=== PATIENT | female | born 1970 | race American Indian/Alaskan Native ===

== ENCOUNTER 2020-05-26 20:15 | Emergency (ER) | payer MEDICAID ==
[2020-05-26 20:36] VITALS: BP 126/79
--- NOTE | 2020-05-26 21:09 | XRay Report ---
LEFT ANKLE 3 VIEWS INDICATION / CLINICAL INFORMATION: Left ankle pain and swelling. No known injury. COMPARISON: None available. FINDINGS: BONES and JOINT(S): No acute fracture or subluxation. No significant arthritis. SOFT TISSUES: There is mild anterior/lateral edema. No other significant abnormality. ADDITIONAL FINDINGS: None. IMPRESSION: Mild left ankle edema. Signer Name: Vitaly Kolb MD Signed: 05/26/2020 9:04 PM Workstation Name: [id number]
[2020-05-27] MEDS ORDERED: KETOROLAC 30 MG/1 ML INJ IM ONE (00:29)
[2020-05-27] MEDS ORDERED: dexAMETHasone 20 MG/5 ML VIAL IM ONE (00:29)
[2020-05-27] MEDS ORDERED: COLCHICINE 0.6 MG CAP PO ONE (00:30)
[2020-05-27] MEDS ORDERED: ONDANSETRON 4 MG ODT TAB PO ONE (00:30)
[2020-05-27] MEDS ORDERED: oxyCODONE /ACETAMINOPHEN 5-325MG TAB PO ONE (00:30)
--- NOTE | 2020-05-27 01:45 | Emergency Department Report ---
ED Extremity Problem HPI - General Chief complaint: Extremity Injury, Lower Stated complaint: LT ANKLE INJURY Source: patient Mode of arrival: Ambulatory Limitations: No Limitations - History of Present Illness Initial comments: Patient is a 49-year-old -[place]oc[place] female with a history of osteoarthritis who presents to the ED with complaint of acute onset persistent nontraumatic left ankle pain and swelling for the last 12 hours. Patient states that she is unable to bear weight on the left ankle because of worsening pain. Patient denies traumatic injury, fall, heavy lifting, dizziness, fever, chills, low back pain, numbness and tingling or weakness of left leg or left ankle, cough or chest pain or shortness of breath. MD Complaint: extremity pain (left ankle pain), extremity swelling (left ankle swelling), joint swelling (left ankle), joint paint (left ankle) -: Sudden, hour(s) (12) Location: left, lower extremity (Ankle) History of Same: No -: Yes arthralgia, No fever, No associated dyspnea, No associated chest pain Radiation: none Severity scale (0 -10): 8 Quality: aching, sharp Consistency: constant Improves with: nothing Worsens with: weight bearing, walking, palpation Associated Symptoms: denies other symptoms, arthralgias. denies: chest pain, sh ortness of breath, fever, myalgias, rash, other - Related Data Previous Rx's Medication Instructions Recorded Last Taken Type Colchicine 0.6 mg PO Q8H #30 capsule 05/27/20 Unknown Rx Naproxen 500 mg PO Q12H PRN #30 tablet 05/27/20 Unknown Rx predniSONE [Deltasone] 40 mg PO QDAY #10 tab 05/27/20 Unknown Rx traMADoL [Ultram] 50 mg PO Q6HR PRN #12 tablet 05/27/20 Unknown Rx Allergies Allergy/AdvReac Type Severity Reaction Status Date / Time No Known Allergies Allergy Unverified 05/26/20 20:36 ED Review of Systems ROS: Stated complaint: LT ANKLE INJURY Other details as noted in HPI Constitutional: denies: chills, fever Eyes: denies: eye pain, eye discharge, vision change ENT: denies: ear pain, throat pain Respiratory: denies: cough, shortness of breath, wheezing Cardiovascular: denies: chest pain, palpitations Endocrine: no symptoms reported Gastrointestinal: denies: abdominal pain, nausea, diarrhea Genitourinary: denies: urgency, dysuria, discharge Musculoskeletal: joint swelling (Left ankle pain and swelling), arthralgia (Left ankle pain). denies: back pain Skin: denies: rash, lesions Neurological: denies: headache, weakness, paresthesias Psychiatric: denies: anxiety, depression Hematological/Lymphatic: denies: easy bleeding, easy bruising ED Past Medical Hx - Past Medical History Previous Medical History?: No Hx Arthritis: Yes - Surgical History Past Surgical History?: No - Social History Smoking Status: Current Every Day Smoker Substance Use Type: Alcohol, Marijuana - Medications Home Medications: Home Medications Medication Instructions Recorded Confirmed Last Taken Type Colchicine 0.6 mg PO Q8H #30 capsule 05/27/20 Unknown Rx Naproxen 500 mg PO Q12H PRN #30 tablet 05/27/20 Unknown Rx predniSONE [Deltasone] 40 mg PO QDAY #10 tab 05/27/20 Unknown Rx traMADoL [Ultram] 50 mg PO Q6HR PRN #12 tablet 05/27/20 Unknown Rx ED Physical Exam - General Limitations: No Limitations General appearance: alert, in no apparent distress - Head Head exam: Present: atraumatic, normocephalic, normal inspection - Eye Eye exam: Present: normal appearance, PERRL, EOMI Pupils: Present: normal accommodation - ENT ENT exam: Present: normal exam, normal orophraynx, mucous membranes moist, TM's normal bilaterally, normal external ear exam - Neck Neck exam: Present: normal inspection, full ROM - Respiratory Respiratory exam: Present: normal lung sounds bilaterally. Absent: respiratory distress, wheezes, rales, rhonchi, chest wall tenderness, accessory muscle use, decreased breath sounds - Cardiovascular Cardiovascular Exam: Present: regular rate, normal rhythm, normal heart sounds. Absent: systolic murmur, diastolic murmur, rubs, gallop - GI/Abdominal GI/Abdominal exam: Present: soft, normal bowel sounds. Absent: tenderness, guarding, rebound, hyperactive bowel sounds, hypoactive bowel sounds - Extremities Exam Extremities exam: Present: normal inspection, full ROM, tenderness (Palpable left ankle tenderness with mild swelling and limited range of motion due to pain), normal capillary refill, joint swelling (Mild left ankle swelling) - Back Exam Back exam: Present: normal inspection, full ROM. Absent: tenderness, CVA tenderness (R), CVA tenderness (L), muscle spasm, paraspinal tenderness, vertebral tenderness - Neurological Exam Neurological exam: Present: alert, oriented X3, CN II-XII intact, normal gait, reflexes normal - Psychiatric Psychiatric exam: Present: normal affect, normal mood - Skin Skin exam: Present: warm, dry, intact, normal color. Absent: rash ED Course Vital Signs 05/26/20 20:32 Temperature 98.8 F Pulse Rate 92 H Respiratory 16 Rate Blood Pressure 126/79 O2 Sat by Pulse 95 Oximetry ED Medical Decision Making - Radiology Data Radiology results: report reviewed, image reviewed Findings [facility] [address] [place] [address] XRay Report Signed Patient: PIETRO JUAREZ MR#: [id number] : 1970 Acct:[id number] Age/Sex: 49 / F ADM Date: 05/26/20 Loc: ED Attending Dr: Ordering Physician: ED MD DARIO Date of Service: 05/26/20 Procedure(s): XR ankle 3+V LT Accession Number(s): [id number] cc: ED MD DARIO Fluoro Time In Minutes: LEFT ANKLE 3 VIEWS INDICATION / CLINICAL INFORMATION: Left ankle pain and swelling. No known injury. COMPARISON: None available. FINDINGS: BONES and JOINT(S): No acute fracture or subluxation. No significant arthritis. SOFT TISSUES: There is mild anterior/lateral edema. No other significant abnormality. ADDITIONAL FINDINGS: None. IMPRESSION: Mild left ankle edema. Signer Name: Vitaly Kolb MD Signed: 05/26/2020 9:04 PM Workstation Name: [id number] Transcribed By: MN Dictated By: Vitaly Kolb MD Electronically Authenticated By: Vitaly Kolb MD Signed Date/Time: 05/26/202103 DD/ 02 TD/TT: - Medical Decision Making This is a 49-year-old -[place]oc[place] female with a history of osteoarthritis who presents to the ED with complaint of acute onset persistent nontraumatic left ankle pain and swelling for the last 12 hours. Patient states that she is unable to bear weight on the left ankle because of worsening pain. In the ED, patient is alert and oriented x3 and is not in distress but appears to be in significant pain. Patient was treated for pain in the ED and left ankle x-ray shows no acute fractures or subluxations but mild left ankle swelling. Patient symptoms are likely due to osteoarthritis or gouty arthropathy versus tendinitis. Patient's left ankle was splinted with Jarrod wrap. On reevaluation, patient's pain is well controlled medications. Patient was discharged home on pain medications and advised to follow-up with her primary care physician in 3 to 5 days for reevaluation or return to the ED immediately if symptoms get worse. - Differential Diagnosis Gouty arthropathy; Osteoarthritis; Tendinitis; Muscle strain Critical care attestation.: If time is entered above; I have spent that time in minutes in the direct care of this critically ill patient, excluding procedure time. ED Disposition Clinical Impression: Acute gouty arthropathy, Left ankle tendinitis Osteoarthritis of left ankle Qualifiers: Osteoarthritis type: primary Qualified Code(s): M19.072 - Primary osteoarthritis, left ankle and foot Disposition: TO HOME OR SELFCARE Is pt being admited?: No Does the pt Need Aspirin: No Condition: Stable Instructions: Tendinitis (ED), Acute Gouty Arthritis (ED), Osteoarthritis (ED) Additional Instructions: Take medication with food, drink plenty of fluids and follow-up with your primary care physician in 5 to 7 days for reevaluation. Return to the ED immediately if symptoms get worse. Prescriptions: Colchicine 0.6 mg PO Q8H #30 capsule predniSONE [Deltasone] 40 mg PO QDAY #10 tab Naproxen 500 mg PO Q12H PRN #30 tablet PRN Reason: Pain , Severe (7-10) traMADoL [Ultram] 50 mg PO Q6HR PRN #12 tablet PRN Reason: Pain Referrals: [facility] [Provider Group] - 3-5 Days Time of Disposition: 01:46 Print Language: BENGALI
== END 2020-05-27 02:20 | disposition home or self-care (01) ==
LOC: ED 20:15
DX: M19.072 Primary osteoarthritis, left ankle and foot (principal); M77.52 Other enthesopathy of left foot and ankle; M10.9 Gout, unspecified; F17.200 Nicotine dependence, unspecified, uncomplicated; F12.10 Cannabis abuse, uncomplicated; Z79.899 Other long term (current) drug therapy
CPT/HCPCS: 73610; 96372; 99283; J1100; J1885; Q0162

== ENCOUNTER 2020-07-30 09:09 | Emergency (ER) | payer MEDICAID ==
[2020-07-30 09:18] VITALS: BP 131/64
--- NOTE | 2020-07-30 12:06 | Emergency Department Report ---
ED Abdominal Pain HPI - General Chief Complaint: Urogenital-Female Stated Complaint: KIDNEY INFECTION Source: patient Mode of arrival: Ambulatory Limitations: No Limitations - History of Present Illness Initial Comments: The patient was evaluated in the emergency department for symptoms described in the history of present illness. He/she was evaluated in the context of the [facility] COVID-19 pandemic, which necessitated consideration that the patient might be at risk for infection with the virus that causes COVID-19. Institutional protocols and algorithms that pertain to the evaluation of patients at risk for COVID-19 are in a state of rapid change based on information released by regulatory bodies including the CDC and federal and state organizations. These policies and algorithms were followed during the patient's care in the emergency department. Please note that these policies, procedures and recommendations changed on a rapid basis. 50-year-old -Iranian female presents to the emergency room for right lower quadrant intermittent abdominal pain for 3 weeks. Patient denies any fever chills no nausea no vomiting no dysuria no diarrhea no constipation no unusual vaginal discharge. Last sexual activity without protection was 1 week ago. She reports her pains a 7 out of 10. Nothing makes it worse nothing makes it better. Past medical history of arthritis. MD Complaint: abdominal pain Onset/Timin -: week(s) Location: RLQ Radiation: none Severity scale (0 -10): 7 Quality: aching Improves With: nothing Worsens With: nothing Associated Symptoms: denies other symptoms. denies: nausea, vomiting, diarrhea, constipation - Related Data LMP (females 10-50): unknown Previous Rx's Medication Instructions Recorded Last Taken Type Colchicine 0.6 mg PO Q8H #30 capsule 05/27/20 Unknown Rx Naproxen 500 mg PO Q12H PRN #30 tablet 05/27/20 Unknown Rx predniSONE [Deltasone] 40 mg PO QDAY #10 tab 05/27/20 Unknown Rx traMADoL [Ultram] 50 mg PO Q6HR PRN #12 tablet 05/27/20 Unknown Rx Omeprazole 40 mg PO QDAY #30 capsule. 07/30/20 Unknown Rx Allergies Allergy/AdvReac Type Severity Reaction Status Date / Time No Known Allergies Allergy Unverified 05/26/20 20:36 ED Review of Systems ROS: Stated complaint: KIDNEY INFECTION Other details as noted in HPI Comment: All other systems reviewed and negative ED Past Medical Hx - Past Medical History Hx Arthritis: Yes - Social History Smoking Status: Current Every Day Smoker Substance Use Type: Alcohol, Marijuana - Medications Home Medications: Home Medications Medication Instructions Recorded Confirmed Last Taken Type Colchicine 0.6 mg PO Q8H #30 capsule 05/27/20 Unknown Rx Naproxen 500 mg PO Q12H PRN #30 tablet 05/27/20 Unknown Rx predniSONE [Deltasone] 40 mg PO QDAY #10 tab 05/27/20 Unknown Rx traMADoL [Ultram] 50 mg PO Q6HR PRN #12 tablet 05/27/20 Unknown Rx Omeprazole 40 mg PO QDAY #30 capsule. 07/30/20 Unknown Rx ED Physical Exam - General Limitations: No Limitations General appearance: alert, in no apparent distress - Head Head exam: Present: atraumatic, normocephalic - Eye Eye exam: Present: normal appearance - ENT ENT exam: Present: mucous membranes moist - Neck Neck exam: Present: normal inspection - Respiratory Respiratory exam: Present: normal lung sounds bilaterally. Absent: respiratory distress, chest wall tenderness - Cardiovascular Cardiovascular Exam: Present: regular rate, normal rhythm. Absent: systolic murmur, diastolic murmur, rubs, gallop - GI/Abdominal GI/Abdominal exam: Present: soft, tenderness (Right lower quadrant). Absent: distended - Back Exam Back exam: Present: normal inspection - Neurological Exam Neurological exam: Present: alert, oriented X3, normal gait - Psychiatric Psychiatric exam: Present: normal affect, normal mood - Skin Skin exam: Present: warm, dry, intact, normal color. Absent: rash ED Course Vital Signs 07/30/20 09:17 Temperature 97.7 F Pulse Rate 87 Respiratory 16 Rate Blood Pressure 131/64 O2 Sat by Pulse 98 Oximetry ED Medical Decision Making - Lab Data Result diagrams: 07/30/20 12:06 07/30/20 12:06 Lab Results 07/30/20 07/30/20 07/30/20 Range/Units 11:23 12:06 12:06 WBC 10.6 (4.5-11.0) K/mm3 RBC 4.59 (3.65-5.03) M/mm3 Hgb 15.2 H (10.1-14.3) gm/dl Hct 45.4 H (30.3-42.9) % MCV 99 H (79-97) fl MCH 33 H (28-32) pg MCHC 34 (30-34) % RDW 13.7 (13.2-15.2) % Plt Count 219 (140-440) K/mm3 Lymph % (Auto) 30.7 (13.4-35.0) % [place] % (Auto) 7.5 H (0.0-7.3) % Eos % (Auto) 1.2 (0.0-4.3) % Baso % (Auto) 2.0 H (0.0-1.8) % Lymph # (Auto) 3.3 (1.2-5.4) K/mm3 [place] # (Auto) 0.8 (0.0-0.8) K/mm3 Eos # (Auto) 0.1 (0.0-0.4) K/mm3 Baso # (Auto) 0.2 H (0.0-0.1) K/mm3 Seg Neutrophils % 58.6 (40.0-70.0) % Seg Neutrophils # 6.2 (1.8-7.7) K/mm3 Sodium 140 (137-145) mmol/L Potassium 4.2 (3.6-5.0) mmol/L Chloride 105.0 (98-107) mmol/L Carbon Dioxide 25 (22-30) mmol/L Anion Gap 14 mmol/L BUN 11 (7-17) mg/dL Creatinine 0.7 (0.6-1.2) mg/dL Estimated GFR > 60 ml/min BUN/Creatinine Ratio 16 % Glucose 90 (65-100) mg/dL Calcium 8.9 (8.4-10.2) mg/dL Total Bilirubin 0.20 (0.1-1.2) mg/dL AST 15 (5-40) units/L ALT 10 (7-56) units/L Alkaline Phosphatase 85 (35-129) units/L Total Protein 7.0 (6.3-8.2) g/dL Albumin 4.2 (3.9-5) g/dL Albumin/Globulin Ratio 1.5 % Lipase 28 (13-60) units/L Urine Color Yellow (Yellow) Urine Turbidity Cloudy (Clear) Urine pH 5.0 (5.0-7.0) Ur Specific [place] 1.021 (1.003-1.030) Urine Protein <15 mg/dl (Negative) mg/dL Urine Glucose (UA) Neg (Negative) mg/dL Urine Ketones Neg (Negative) mg/dL Urine Blood Neg (Negative) Urine Nitrite Neg (Negative) Urine Bilirubin Neg (Negative) Urine Urobilinogen 2.0 (<2.0) mg/dL Ur Leukocyte Esterase Neg (Negative) Urine WBC (Auto) 4.0 (0.0-6.0) /HPF Urine RBC (Auto) 6.0 (0.0-6.0) /HPF U Epithel Cells (Auto) 33.0 H (0-13.0) /HPF Urine Bacteria (Auto) 1+ (Negative) /HPF Calcium Oxalate Crystal 2+ Urine Mucus 2+ /HPF - Radiology Data Radiology results: report reviewed Ordering Physician: JOSIE KOHLI Date of Service: 07/30/20 Procedure(s): CT abdomen pelvis w con Accession Number(s): [id number] cc: JOSIE KOHLI CT abdomen pelvis w con INDICATION: Right lower quadrant pain and tenderness. TECHNIQUE: All CT scans at this location are performed using the following dose modulation technique: Automated exposure control. Helical slices were obtained through the abdomen and pelvis. 100 cc of Omnipaque 300 is administered. COMPARISON: None available. FINDINGS: Abdomen: No acute abnormality seen in the lower chest. The liver, spleen, pancreas, adrenal glands, and kidneys show no acute abnormality. The aorta is normal in diameter. There is no obstruction, inflammation, or free air. There appears to be some wall thickening in the distal stomach or duodenal bulb possibly representing gastritis/duodenitis. Pelvis: The appendix is unremarkable. There is no obstruction, inflammation, or free air. There are no abnormal fluid collections. On review of bone windows, no acute osseous abnormalities are seen. IMPRESSION: 1. There is wall thickening noted in the distal stomach/duodenal bulb which could represent gastritis or duodenitis. The appendix is unremarkable. There is no obstruction or free air. Signer Name: Goldy Johnston MD Signed: 07/30/2020 1:38 PM Workstation Name: [id number] Transcribed By: SS Dictated By: Goldy Johnston MD Electronically Authenticated By: Goldy Johnston MD Signed Date/Time: 07/30/20 1330 DD/ 1334 TD/TT: - Medical Decision Making 50-year-old -Iranian female presents to the emergency room for right lower quadrant intermittent abdominal pain for 3 weeks. Patient denies any fever chills no nausea no vomiting no dysuria no diarrhea no constipation no unusual vaginal discharge. Last sexual activity without protection was 1 week ago. She reports her pains a 7 out of 10. Nothing makes it worse nothing makes it better. Past medical history of arthritis. CBC CMP lipase urinalysis CT with contrast. CT showed some duodenitis versus gastritis. Urinalysis is negative for any infection. There is no leukocytosis. Patient will be referred to gastroenterology. She can take Tylenol for pain management. Critical care attestation.: If time is entered above; I have spent that time in minutes in the direct care of this critically ill patient, excluding procedure time. ED Disposition Clinical Impression: Gastritis and duodenitis Disposition: DC-01 TO HOME OR SELFCARE Is pt being admited?: No Condition: Stable Instructions: Gastritis, Adult, [id number] Additional Instructions: CT scan shows that you have a gastritis versus duodenitis. I recommend taking the omeprazole and to follow-up with gastroenterology for more evaluation and testing. Prescriptions: Omeprazole 40 mg PO QDAY #30 capsule. Referrals: PRIMARY CARE, [Primary Care Provider] - 3-5 Days [facility] [Provider Group] - 3-5 Days Forms: Work/School Release Form(ED)
[2020-07-30 12:12] LABS: Bacteria,Urine 1+ /HPF (Negative); Bilirubin,Urine NEG (Negative); Blood,Urine NEG (Negative); Calcium Oxalate Crystals,Urine 2+; Color,Urine Yellow (Yellow); Mucus,Urine 2+ /HPF; Protein,Urine <15 mg/dL mg/dL (Negative)
[2020-07-30 12:46] LABS: Basophils # (Auto) 0.2 K/mm3 (0.0-0.1); Eosinophils # (Auto) 0.1 K/mm3 (0.0-0.4); Eosinophils % (Auto) 1.2 % (0.0-4.3); Hematocrit 45.4 % (30.3-42.9); Hemoglobin 15.2 gm/dl (10.1-14.3); Lymphocytes # (Auto) 3.3 K/mm3 (1.2-5.4); Lymphocytes % (Auto) 30.7 % (13.4-35.0); Mean Corpuscular HGB Conc 34 % (30-34); Mean Corpuscular Volume 99 fl (79-97); Monocytes # (Auto) 0.8 K/mm3 (0.0-0.8); Monocytes % (Auto) 7.5 % (0.0-7.3); Platelet Count 219 K/mm3 (140-440); Red Blood Count 4.59 M/mm3 (3.65-5.03); Red Cell Distribution Width 13.7 % (13.2-15.2)
[2020-07-30 12:50] LABS: Alanine Aminotransferase 10 units/L (7-56); Albumin 4.2 g/dL (3.9-5); Blood Urea Nitrogen 11 mg/dL (7-17); Calcium 8.9 mg/dL (8.4-10.2); Hemolysis Index 10
[2020-07-30 12:57] LABS: BUN/Creatinine Ratio 16
--- NOTE | 2020-07-30 13:43 | Cat Scan Report ---
CT abdomen pelvis w con INDICATION: Right lower quadrant pain and tenderness. TECHNIQUE: All CT scans at this location are performed using the following dose modulation technique: Automated exposure control. Helical slices were obtained through the abdomen and pelvis. 100 cc of Omnipaque 30 0 is administered. COMPARISON: None available. FINDINGS: Abdomen: No acute abnormality seen in the lower chest. The liver, spleen, pancreas, adrenal glands, a nd kidneys show no acute abnormality. The aorta is normal in diameter. There is no obstruction, infla mmation, or free air. There appears to be some wall thickening in the distal stomach or duodenal bulb possibly representing gastritis/duodenitis. Pelvis: The appendix is unremarkable. There is no obstruction, inflammation, or free air. There are n o abnormal fluid collections. On review of bone windows, no acute osseous abnormalities are seen. IMPRESSION: 1. There is wall thickening noted in the distal stomach/duodenal bulb which could represent gastritis or duodenitis. The appendix is unremarkable. There is no obstruction or free air. Signer Name: Goldy Johnston MD Signed: 07/30/2020 1:38 PM Workstation Name: [id number]
== END 2020-07-30 16:22 | disposition home or self-care (01) ==
LOC: ED 09:09
DX: K29.60 Other gastritis without bleeding (principal); K29.80 Duodenitis without bleeding; M13.88 Other specified arthritis, other site; F17.200 Nicotine dependence, unspecified, uncomplicated; F12.10 Cannabis abuse, uncomplicated; Z79.899 Other long term (current) drug therapy
CPT/HCPCS: 36415; 74177; 80053; 81001; 83690; 85025; 99284; Q9967

== ENCOUNTER 2020-11-26 09:51 | Emergency (ER) | payer MEDICAID ==
[2020-11-26 09:59] VITALS: BP 148/66
--- NOTE | 2020-11-26 10:07 | Emergency Department Report ---
ED General Adult HPI - General Chief complaint: Dental/Oral Stated complaint: INFECTED TOOTH RT ARM AND SHOULDER PAIN Time Seen by Provider: 11/26/20 10:00 Source: patient Mode of arrival: Ambulatory Limitations: No Limitations - History of Present Illness Initial comments: 50 yr old female who reports no significant pmhx presents to ED with c/o right posterior neck pain and dental pain. She states right post neck pain started yesterday. She states it radiates into her right shoulder and down to right arm. She states its a burning pain. Its worse with movement of her right shoulder. She states she has had similar symptoms in past and she was seen and elevated at an ER and was told she has "arthritis" in her neck. She states she has not f/u with Ortho nor PCP since she was informed of this. She reports no numbness, tingling, weakness, chest pain, or SOB. Pt also c/o dental pain to anterior lower jaw for past couple days. She states she has a dental appointment on saturday but she has been having pain and is concerned she might have an infections. MD Complaint: Right Shoulder pain; Dental Pain -: days(s) (1) - Related Data Previous Rx's Medication Instructions Recorded Last Taken Type Colchicine 0.6 mg PO Q8H #30 capsule 05/27/20 Unknown Rx predniSONE [Deltasone] 40 mg PO QDAY #10 tab 05/27/20 Unknown Rx Omeprazole 40 mg PO QDAY #30 capsule. 07/30/20 Unknown Rx Naproxen 500 mg PO Q12H PRN #30 tablet 11/26/20 Unknown Rx traMADoL [Ultram 50 MG tab] 50 mg PO Q6HR PRN #12 tablet 11/26/20 Unknown Rx Allergies Allergy/AdvReac Type Severity Reaction Status Date / Time No Known Allergies Allergy Verified 11/26/20 09:52 ED Review of Systems ROS: Stated complaint: INFECTED TOOTH RT ARM AND SHOULDER PAIN Other details as noted in HPI Comment: All other systems reviewed and negative ENT: dental pain Musculoskeletal: arthralgia, myalgia, other (post neck pain ) Neurological: denies: headache, weakness, numbness, paresthesias, confusion Psychiatric: denies: anxiety, depression Hematological/Lymphatic: denies: easy bleeding, easy bruising ED Past Medical Hx - Past Medical History Hx Arthritis: Yes - Surgical History Past Surgical History?: No - Social History Smoking Status: Current Every Day Smoker Substance Use Type: None - Medications Home Medications: Home Medications Medication Instructions Recorded Confirmed Last Taken Type Colchicine 0.6 mg PO Q8H #30 capsule 05/27/20 Unknown Rx predniSONE [Deltasone] 40 mg PO QDAY #10 tab 05/27/20 Unknown Rx Omeprazole 40 mg PO QDAY #30 capsule. 07/30/20 Unknown Rx Naproxen 500 mg PO Q12H PRN #30 tablet 11/26/20 Unknown Rx traMADoL [Ultram 50 MG tab] 50 mg PO Q6HR PRN #12 tablet 11/26/20 Unknown Rx ED Physical Exam - General Limitations: No Limitations General appearance: alert, in no apparent distress - Head Head exam: Present: atraumatic, normocephalic, normal inspection - ENT ENT exam: Present: normal exam, mucous membranes moist - Expanded ENT Exam Expanded Mouth exam: Absent: drooling, trismus, muffled voice, tongue normal, tongue elevation Teeth exam: Present: dental caries (diffusely including lower anterior jaw but no abscess noted) - Neck Neck exam: Present: normal inspection, tenderness (mild right lower paraspinal muscle and midline; Mod right trapezius muscle. ), full ROM. Absent: meningism us, lymphadenopathy, thyromegaly - Respiratory Respiratory exam: Present: normal lung sounds bilaterally - Cardiovascular Cardiovascular Exam: Present: regular rate, normal rhythm, normal heart sounds - Extremities Exam Extremities exam: Present: normal inspection, full ROM. Absent: tenderness (no ttp right shoulder but movement of right shoulder causes pain right neck ) - Neurological Exam Neurological exam: Present: alert, oriented X3, CN II-XII intact, normal gait - Psychiatric Psychiatric exam: Present: normal affect, normal mood - Skin Skin exam: Present: intact ED Course Vital Signs 11/26/20 09:53 Temperature 97.8 F Pulse Rate 86 Respiratory 20 Rate Blood Pressure 148/66 O2 Sat by Pulse 96 Oximetry Critical care attestation.: If time is entered above; I have spent that time in minutes in the direct care of this critically ill patient, excluding procedure time. ED Disposition Clinical Impression: Neck pain, Cervical radiculopathy, Dental caries Disposition: TO HOME OR SELFCARE Is pt being admited?: No Does the pt Need Aspirin: No Condition: Stable Instructions: Cervical Radiculopathy Additional Instructions: Keep your appointment with your dentist this saturday. Follow up with the PCP and or magnetic tape composer operator listed your discharge instructions for further evaluation of your neck pain. Take the medications as prescribed. Return to ED if worse. Prescriptions: Naproxen 500 mg PO Q12H PRN #30 tablet PRN Reason: Pain , Severe (7-10) traMADoL [Ultram 50 MG tab] 50 mg PO Q6HR PRN #12 tablet PRN Reason: Pain Referrals: TASHA TUCKER MD [Staff Physician] - 3-5 Days NYA MUSTAFA MD [Staff Physician] - 3-5 Days Time of Disposition: 10:11
== END 2020-11-26 10:18 | disposition home or self-care (01) ==
LOC: ED 09:51
DX: M54.12 Radiculopathy, cervical region (principal); K02.9 Dental caries, unspecified; M54.2 Cervicalgia; M19.91 Primary osteoarthritis, unspecified site; F17.200 Nicotine dependence, unspecified, uncomplicated; Z79.899 Other long term (current) drug therapy
CPT/HCPCS: 99282

== ENCOUNTER 2020-12-03 13:57 | Emergency (ER) | payer MEDICAID ==
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
[2020-12-03 14:12] VITALS: BP 136/77
[2020-12-03] MEDS ORDERED: ACETAMINOPHEN 325 MG TAB PO ONE (14:12)
[2020-12-03] MEDS ORDERED: DIPHtheria,PERTUSSIS(ACELL),TETANUS VACCINE/PF 0.5 ML VIAL IM ONE (14:12)
[2020-12-03] MEDS ORDERED: LIDOCAINE (1%) 10 MG/1 ML VIAL 20 ML MDV INFILTRATI NR (14:15)
[2020-12-03] MEDS ORDERED: NEOMY 3.5 MG/BACIT 400 UNITS/POLY B 5000 UNITS/GM OINT PACKET TP ONE (15:07)
== END 2020-12-03 15:37 | disposition home or self-care (01) ==
LOC: ED 13:57
DX: S01.01XA Laceration without foreign body of scalp, initial encounter (principal); S09.90XA Unspecified injury of head, initial encounter; M19.91 Primary osteoarthritis, unspecified site; F17.200 Nicotine dependence, unspecified, uncomplicated; Z79.899 Other long term (current) drug therapy; Y04.2XXA Assault by strike against or bumped into by another person, initial encounter; Y93.89 Activity, other specified; Y92.89 Other specified places as the place of occurrence of the external cause; Y99.8 Other external cause status
CPT/HCPCS: 12001; 90471; 90715; 99282; A6250